=== PATIENT | female | born 1980 | race Two or more races ===

== ENCOUNTER 2016-07-13 11:25 | Emergency (ER) | payer MEDICAID ==
[~2016-07-13] VITALS: Ht 162.6 cm; Wt 68.0 kg
[2016-07-13 12:17] VITALS: BP 107/66
[2016-07-13] MEDS ORDERED: AZITHROMYCIN250 MG ORAL (12:20)
[2016-07-13 12:46] VITALS: BP 107/66
--- NOTE | 2016-07-17 16:27 | Emergency Room Report ---
History of Present Illness General Chief Complaint: Flu Like Symptoms Source: Patient Present Illness HPI Patient presents with younger children with similar complaints Patient has been having left ear pain along with runny nose and cough Nasal congestion Denies any chest pain or shortness of breath Denies any neck pain or photophobia denies any vomiting or diarrhea Patient symptoms ongoing for the past several days there have been sick contacts at home Allergies: Coded Allergies: No Known Allergies (Unverified , 07/13/16) Patient History Past Medical History: see triage record Pertinent Family History: none Reviewed Nursing Documentation: PMH: Agreed, PSxH: Agreed Nursing Documentation-PMH Past Medical History: No Stated History Review of Systems All Other Systems: negative except mentioned in HPI Physical Exam Vital Signs Date Time Temp Pulse Resp B/P Pulse Ox O2 Delivery O2 Flow Rate FiO2 07/13/16 11:32 98.1 64 20 107/66 97 Room Air Sp02 EP Interpretation: reviewed, normal General Appearance: well appearing, no apparent distress Head: normocephalic, atraumatic Eyes: bilateral eye EOMI, bilateral eye PERRL ENT: hearing grossly normal, normal pharynx, uvula midline, other - Left tympanic membrane is erythematous and mildly bulging, no foreign body Neck: full range of motion, supple, no meningismus, no bony tend Respiratory: lungs clear, normal breath sounds, no rhonchi, no respiratory distress, no retraction, no accessory muscle use Cardiovascular #1: normal peripheral pulses, regular rate, rhythm, no edema, no gallop, no JVD, no murmur Gastrointestinal: normal bowel sounds, non tender, soft, no mass, no organomegaly, non-distended, no guarding, no hernia, no pulsatile mass, no rebound Genitourinary: no CVA tenderness Musculoskeletal: normal inspection Neurologic: oriented x3, responsive, cassandra architect III-XII nml as tested, motor strength/ tone normal, sensory intact Psychiatric: mood/affect normal Skin: normal color, no rash, warm/dry, palpation normal Lymphatic: normal inspection, no adenopathy Medical Decision Making Diagnostic Impression: Primary Impression: otitis media Additional Impression: uri ER Course Patient's findings in line with URI symptoms however there is also findings of otitis media For this the patient was required to be on antibiotics Otherwise does not appear septic or toxic and will have initial conservative outpatient trial Last Vital Signs Date Time Temp Pulse Resp B/P Pulse Ox O2 Delivery O2 Flow Rate FiO2 07/13/16 12:46 98.1 64 20 107/66 97 Room Air Status: improved Disposition: HOME, SELF-CARE Condition: Stable Scripts Azithromycin* (ZITHROMAX*) 250 Mg Tablet 250 MG ORAL DAILY, #6 TAB 0 Refills Take two tablets by mouth today, then take one tablet by mouth daily for four days Prov: NORBERTO MEJIA D.O. 07/13/16 Referrals: NOT CHOSEN [facility]/,REFERRING (PCP) Patient Instructions: Pharyngitis, Otitis Media, Adult Additional Instructions: Patient is provided with the discharge instructions notified to follow up with primary doctor in the next 2-3 days otherwise return to the er with any worsening symptoms. NORBERTO MEJIA D.O. Jul 17, 2016 16:27
== END 2016-07-13 12:30 | disposition home or self-care (01) ==
LOC: EMR 12:24
DX: H66.92 Otitis media, unspecified, left ear (principal); J06.9 Acute upper respiratory infection, unspecified; R05 Cough
CPT/HCPCS: 99282

== ENCOUNTER 2020-05-16 00:57 | Emergency (ER) | payer MEDICAID ==
[~2020-05-16] VITALS: Ht 162.6 cm; Wt 59.0 kg
[~2020-05-16 00:57] MED LIST: AZITHROMYCIN250 MG ORAL
[2020-05-16 01:33] VITALS: BP 108/70
[2020-05-16] MEDS ORDERED: IBUPROFEN600 M1 ORAL (01:44)
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
[2020-05-16 01:49] VITALS: BP 108/70
== END 2020-05-16 01:50 | disposition home or self-care (01) ==
LOC: EMR 01:13
DX: S09.90XA Unspecified injury of head, initial encounter (principal); S40.211A Abrasion of right shoulder, initial encounter; S05.11XA Contusion of eyeball and orbital tissues, right eye, initial encounter; Y04.2XXA Assault by strike against or bumped into by another person, initial encounter; Y93.89 Activity, other specified; Y92.9 Unspecified place or not applicable; Z72.89 Other problems related to lifestyle
CPT/HCPCS: 99282